=== PATIENT | male | born 2000 | race Caucasian/White ===

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

== ENCOUNTER → 2018-05-28 | Outpatient (REF) | payer OTHER ==
[~2018-05-28] MED LIST: BACI500O8 TOP; IBUP-1022 PO; TYLE325T5 PO; ULTR50TA8 PO
== END ==
LOC: M SFHCLERA 13:09
PROVIDERS: ATTEND Physician Assistant
DX: J02.9 Acute pharyngitis, unspecified (principal)

== ENCOUNTER → 2018-08-20 | Outpatient (REF) | payer OTHER ==
[2018-08-20 21:07] LABS: CHLAMYDIA DNA AMPLIFICATION NEGATIVE (NEGATIVE); GC DNA AMPLIFICATION NEGATIVE (NEGATIVE)
== END ==
LOC: M SFHCLERA 10:45
PROVIDERS: ATTEND Nurse Practitioner Family
DX: R10.30 Lower abdominal pain, unspecified (principal)

== ENCOUNTER → 2018-08-20 | Outpatient (CLI) | payer OTHER ==
--- NOTE | 2018-08-20 11:21 | REP ---
Clinical: Abdominal pain. Technique: Two supine views of the abdomen and pelvis. Findings: Mild/moderate fecal stasis and possible retained material within the stomach requires correlation. No evidence for bowel obstruction. No organomegaly. No abnormal calcifications. Skeletal structures are intact. Impression: Retained material within the stomach and mild/moderate fecal stasis through the colon. No evidence for bowel perforation or obstruction. Electronically Signed by Derrick Peoples MD 08/20/2018 11:12 A
== END ==
LOC: M LRY 10:51
PROVIDERS: ATTEND Nurse Practitioner Family
DX: R10.30 Lower abdominal pain, unspecified (principal)
CPT/HCPCS: 74018; 81002; 87086; 87661; G0463

== ENCOUNTER → 2019-02-06 | Outpatient (CLI) | payer OTHER ==
--- NOTE | 2019-02-06 10:19 | REP ---
Chest x-ray: Two views. History: Fever. Cough. . Comparison study: January 21, 2015 . Findings: The lungs are well inflated and free of infiltrate. The pleural angles are sharp. The heart size is normal. Pulmonary vasculature is not increased. No significant bony abnormality is seen. Impression: Negative chest x-ray. Electronically Signed by Gary Wall MD 02/06/2019 10:10 A
== END ==
LOC: M LRY 09:53
PROVIDERS: ATTEND Physician Assistant
DX: R50.9 Fever, unspecified (principal); R05 Cough
CPT/HCPCS: 71046; 87880; G0463

== ENCOUNTER → 2019-02-06 | Outpatient (REF) | payer OTHER | LOC: M SFHCLERA 13:06 | PROVIDERS: ATTEND Physician Assistant | DX: J02.9 Acute pharyngitis, unspecified (principal) ==

== ENCOUNTER 2024-05-19 16:41 | Emergency (ER) | payer OTHER, SELFPAY ==
[~2024-05-19] VITALS: Ht 167.6 cm; Wt 78.9 kg
[2024-05-19 20:36] VITALS: BP 127/74; TEMP 99.7; O2SAT 95
== END 2024-05-19 20:40 | disposition home or self-care (01) ==
LOC: M ED 16:41
DX: J09.X2 Influenza due to identified novel influenza A virus with other respiratory manifestations (principal); Z79.1 Long term (current) use of non-steroidal anti-inflammatories (NSAID); Z79.899 Other long term (current) drug therapy; Z79.2 Long term (current) use of antibiotics